=== PATIENT | female | born 1950 | race Asian ===

== ENCOUNTER 2018-10-03 06:55 | Inpatient (IN) | payer OTHER, MEDICAID ==
[2018-10-03] VITALS (9 sets, daily range): BP systolic 88–160
[~2018-10-03] VITALS: Ht 157.5 cm; Wt 59.0 kg
[2018-10-03] MEDS ORDERED: NACL 0.9% 1,000 ML IV ONE (07:21)
[2018-10-03] MEDS ORDERED: DIPHENHYDRAMINE INJ 50 MG/ML VIAL ONE (07:25)
[2018-10-03] MEDS ORDERED: MORPHINE 4 MG/ML INJ. SYRINGE ONE (07:25)
[2018-10-03] MEDS ORDERED: MORPHINE 4 MG/ML INJ. SYRINGE IVP ONE ×3 (07:30→15:15)
[2018-10-03] MEDS ORDERED: DIPHENHYDRAMINE INJ 50 MG/ML VIAL IVP ONE ×2 (07:30→09:30)
[2018-10-03 07:47] LABS: BASOPHILS % (AUTO) 0.3 % (0.0-2.0); EOSINOPHILS # (AUTO) 0.1 K/uL (0.0-0.4); EOSINOPHILS % (AUTO) 0.8 % (0.0-4.0); HEMATOCRIT 46.9 % (36-48); HEMOGLOBIN 15.5 g/dL (12.0-16.0); LYMPHOCYTES # (AUTO) 2.2 K/uL (1.0-5.5); LYMPHOCYTES % (AUTO) 21.8 % (20.5-51.5); MEAN CORPUSCULAR HEMOGLOBIN 31 pg (27-31); MEAN CORPUSCULAR HGB CONC 33 % (32-36); MEAN CORPUSCULAR VOLUME 93 fL (79.0-98.0); MONOCYTES # (AUTO) 0.3 K/uL (0.0-1.0); MONOCYTES % (AUTO) 2.6 % (1.7-9.3); NEUTROPHILS # (AUTO) 7.3 K/uL (1.8-7.7); NEUTROPHILS % (AUTO) 74.5 % (40.0-70.0); PLATELET COUNT (AUTO) 265 K/uL (130-430); RED BLOOD CELL COUNT(AUTO) 5.07 MIL/uL (4.2-6.2); RED CELL DISTRIBUTION WIDTH 12.6 % (9.0-15.0); WHITE BLOOD COUNT (AUTO) 9.9 K/uL (4.8-10.8)
[2018-10-03 08:03] LABS: CALCIUM 9.5 mg/dL (8.4-11.0); CREATININE 0.85 mg/dL (0.55-1.30); POTASSIUM 3.3 mmol/L (3.5-5.1)
[2018-10-03 08:09] LABS: ALBUMIN 3.8 g/dL (3.4-4.8); TOTAL BILIRUBIN 0.5 mg/dL (0.0-1.0)
[2018-10-03 08:58] LABS: BILIRUBIN,URINE NEGATIVE (NEGATIVE); CLARITY/URINE CLEAR (CLEAR); COLOR,URINE YELLOW (YELLOW); GLUCOSE,URINE 2+ (NEGATIVE); KETONES,URINE 1+ (NEGATIVE); LEUKOCYTE ESTERASE ,URINE 1+ (NEGATIVE); NITRITE, URINE NEGATIVE (NEGATIVE); PROTEIN URINE NEGATIVE (NEGATIVE); UROBILINOGEN,URINE 0.2 (0.2-1.0)
[2018-10-03 09:18] LABS: BLOOD, URINE TRACE (NEGATIVE)
[2018-10-03] MEDS ORDERED: PIPERACILLIN/TAZO 3.375 GM in NS 50 ML IV ONE (09:30)
[2018-10-03] MEDS ORDERED: POTASSIUM CHLORIDE 40 MEQ in NS 250 ML IV ONE (09:30)
[2018-10-03 09:34] LABS: BACTERIA,URINE FEW /HPF (None Seen); RBC,URINE 0-3 /HPF (0-3)
[2018-10-03 09:35] LABS: MUCUS,URINE None Seen /LPF (None Seen)
[2018-10-03] MEDS ORDERED: KCL 20 mEq in NS 1000 mL 1,000 ML IV SCH (13:02)
[2018-10-03] MEDS ORDERED: PANTOPRAZOLE SODIUM 40 MG/VIAL (PROTONIX) IVP ONE (13:30)
[2018-10-03] MEDS ORDERED: ACETAMINOPHEN 650 MG SUPP.RECT RC PRN (13:30)
[2018-10-03] MEDS ORDERED: LEVOFLOXACIN 500 MG/D5W 100 ML IV ONE (13:30)
[2018-10-03] MEDS: INSULIN ASPART 100 UNITS/ML, 10 ML VIAL (NovoLOG) SUBCUT PRN ×2 (14:40→18:05)
[2018-10-03] MEDS: LEVOFLOXACIN 500 MG/D5W 100 ML IV SCH (15:02)
[2018-10-03] MEDS ORDERED: ONDANSETRON HCL 4 MG/2 ML VIAL IVP ONE (15:15)
[2018-10-03] MEDS ORDERED: ONDANSETRON HCL 4 MG/2 ML VIAL IVP PRN ×3 (16:15→23:00)
[2018-10-03] MEDS ORDERED: MORPHINE 4 MG/ML INJ. SYRINGE IVP PRN (16:15)
[2018-10-03] MEDS: metroNIDAZOLE 500 mg/NS 100 ML IV SCH (16:16)
[2018-10-03] MEDS ORDERED: LR 1,000 ML IV ONE (19:15)
[2018-10-03] MEDS ORDERED: fentaNYL CITRATE/PF 100 MCG/2 ML AMP IVP ONE (20:20)
[2018-10-03] MEDS ORDERED: PHENYLEPHRINE HCL 10 MG/ML VIAL (NEOSYNEPHRINE) IV ONE (20:20)
[2018-10-03] MEDS ORDERED: BUPIVACAINE LIPOSOME/PF 266 MG/20 ML VIAL INFIL ONE (20:20)
[2018-10-03] MEDS ORDERED: ROCURONIUM BROMIDE 10 MG/ML (ZEMURON) IV ONE (20:20)
[2018-10-03] MEDS ORDERED: PROPOFOL 200MG/ 20ML VIAL (DIPRIVAN) IV ONE (20:20)
[2018-10-03] MEDS ORDERED: NS IRRIG SOLN 1000 ML IR ONE (20:20)
[2018-10-03] MEDS ORDERED: MIDAZOLAM HCL 5 MG/5 ML VIAL IVP ONE (20:20)
[2018-10-03] MEDS ORDERED: SEVOFLURANE 15 MIN GAS INH ONE (20:20)
[2018-10-03] MEDS ORDERED: LR 1,000 ML IV.SOLN IV ONE (20:20)
[2018-10-03] MEDS ORDERED: fentaNYL CITRATE/PF 100 MCG/2 ML AMP IVP PRN ×2 (21:30)
[2018-10-03] MEDS ORDERED: NACL 0.9% 1,000 ML IV SCH (23:00)
[2018-10-03] MEDS ORDERED: ACETAMINOPHEN 325 MG TABLET PO PRN (23:00)
[2018-10-03] MEDS ORDERED: LR 1,000 ML IV SCH (23:21)
[2018-10-04] VITALS (29 sets, daily range): BP systolic 88–166
[2018-10-04 00:07] LABS: CALCIUM 7.2 mg/dL (8.4-11.0); CREATININE 1.24 mg/dL (0.55-1.30)
[2018-10-04 00:10] LABS: POTASSIUM 6.9 mmol/L (3.5-5.1)
[2018-10-04] MEDS ORDERED: CEFAZOLIN 2 GM IVPB PREMIX 100 ML IV ONE (00:31)
[2018-10-04] MEDS: D5/0.45 NS 1,000 ML IV SCH ×3 (00:52→23:17)
[2018-10-04] MEDS: HYDROmorphone 1 MG INJ. 1 MG/ML AMPUL IVP PRN ×2 (00:59→05:38)
[2018-10-04] MEDS ORDERED: SODIUM POLYSTYRENE SULFONATE 15 GM/60 ML UDBTL PO ONE (01:35)
[2018-10-04] MEDS ORDERED: INSULIN REGULAR, HUMAN 100 UNITS/ML, 10 ML VIAL SUBCUT ONE (01:35)
[2018-10-04] MEDS ORDERED: DEXTROSE 50% JECT 50 ML DISP.SYRIN IVP ONE (01:35)
[2018-10-04] MEDS ORDERED: CALCIUM CHLORIDE 1 GM/10 ML DISP.SYRIN (14 mEq Ca++/SYR) IVP ONE (01:45)
[2018-10-04] MEDS: CEFAZOLIN 2 GM IVPB PREMIX 50 ML IV SCH ×2 (01:59→08:43)
[2018-10-04] MEDS ORDERED: INSULIN REGULAR, HUMAN 100 UNITS/ML, 10 ML VIAL IV ONE (02:30)
[2018-10-04] MEDS: metroNIDAZOLE 500 mg/NS 100 ML IV SCH ×4 (03:56→23:14)
[2018-10-04 06:00] LABS: CALCIUM 8.6 mg/dL (8.4-11.0); CREATININE 1.27 mg/dL (0.55-1.30)
[2018-10-04 06:05] LABS: HEMATOCRIT 38.8 % (36-48); HEMOGLOBIN 12.9 g/dL (12.0-16.0); LYMPHOCYTES # (AUTO) 1.6 K/uL (1.0-5.5); LYMPHOCYTES % (AUTO) 9.6 % (20.5-51.5); MEAN CORPUSCULAR HEMOGLOBIN 31 pg (27-31); MEAN CORPUSCULAR HGB CONC 33 % (32-36); MEAN CORPUSCULAR VOLUME 94 fL (79.0-98.0); MONOCYTES % (AUTO) 6.1 % (1.7-9.3); NEUTROPHILS # (AUTO) 13.7 K/uL (1.8-7.7); NEUTROPHILS % (AUTO) 84.3 % (40.0-70.0); PLATELET COUNT (AUTO) 199 K/uL (130-430); RED BLOOD CELL COUNT(AUTO) 4.13 MIL/uL (4.2-6.2); RED CELL DISTRIBUTION WIDTH 13.1 % (9.0-15.0); WHITE BLOOD COUNT (AUTO) 16.3 K/uL (4.8-10.8)
[2018-10-04 06:06] LABS: BILIRUBIN,DIRECT 0.1 mg/dL (0.0-0.3); TOTAL BILIRUBIN 0.4 mg/dL (0.0-1.0)
[2018-10-04] MEDS: INSULIN ASPART 100 UNITS/ML, 10 ML VIAL (NovoLOG) SUBCUT PRN (06:49)
[2018-10-04] MEDS: PANTOPRAZOLE SODIUM 40 MG/VIAL (PROTONIX) IVP SCH (08:43)
[2018-10-04] MEDS ORDERED: NS 150 ML IV ONE (10:00)
[2018-10-04] MEDS: LEVOFLOXACIN 500 MG/D5W 100 ML IV SCH (10:29)
[2018-10-04] MEDS ORDERED: NACL 0.9% 1,000 ML IV ONE (11:00)
[2018-10-04] MEDS: HYDROmorphone 2 MG/ML VIAL IVP PRN ×2 (13:57→22:09)
[2018-10-04] MEDS: FLUCONAZOLE 200 mg/ NS 100 ML IV SCH (15:11)
[2018-10-04] MEDS: PIPERACILLIN/TAZO 4.5GM/DEX-IS 100 ML IV SCH ×2 (15:52→21:51)
[2018-10-05] MEDS: D5/0.45 NS 1,000 ML IV SCH ×2 (01:47→16:59)
[2018-10-05] MEDS: metroNIDAZOLE 500 mg/NS 100 ML IV SCH ×2 (05:00→13:24)
[2018-10-05] MEDS: PIPERACILLIN/TAZO 4.5GM/DEX-IS 100 ML IV SCH ×3 (06:00→21:27)
[2018-10-05 06:35] LABS: ALBUMIN 1.8 g/dL (3.4-4.8); CALCIUM 7.5 mg/dL (8.4-11.0); CREATININE 1.41 mg/dL (0.55-1.30); POTASSIUM 4.2 mmol/L (3.5-5.1); TOTAL BILIRUBIN 0.5 mg/dL (0.0-1.0)
[2018-10-05 06:41] LABS: BASOPHILS # (AUTO) 0.2 K/uL (0.0-0.2); BASOPHILS % (AUTO) 1.1 % (0.0-2.0); EOSINOPHILS % (AUTO) 0.1 % (0.0-4.0); HEMATOCRIT 29.5 % (36-48); HEMOGLOBIN 9.7 g/dL (12.0-16.0); LYMPHOCYTES # (AUTO) 1.3 K/uL (1.0-5.5); LYMPHOCYTES % (AUTO) 9.5 % (20.5-51.5); MEAN CORPUSCULAR HEMOGLOBIN 31 pg (27-31); MEAN CORPUSCULAR HGB CONC 33 % (32-36); MEAN CORPUSCULAR VOLUME 94 fL (79.0-98.0); MONOCYTES # (AUTO) 0.6 K/uL (0.0-1.0); MONOCYTES % (AUTO) 4.6 % (1.7-9.3); NEUTROPHILS # (AUTO) 11.9 K/uL (1.8-7.7); NEUTROPHILS % (AUTO) 84.7 % (40.0-70.0); PLATELET COUNT (AUTO) 164 K/uL (130-430); RED BLOOD CELL COUNT(AUTO) 3.14 MIL/uL (4.2-6.2); RED CELL DISTRIBUTION WIDTH 13.3 % (9.0-15.0)
[2018-10-05 08:03] VITALS: BP_SYST 124
[2018-10-05] MEDS: PANTOPRAZOLE SODIUM 40 MG/VIAL (PROTONIX) IVP SCH (08:09)
[2018-10-05] MEDS: FLUCONAZOLE 200 mg/ NS 100 ML IV SCH (08:10)
[2018-10-05] MEDS: HYDROmorphone 2 MG/ML VIAL IVP PRN ×2 (08:11→17:07)
[2018-10-05 11:29] VITALS: BP_SYST 117
[2018-10-05 15:32] VITALS: BP_SYST 123
[2018-10-05 19:08] VITALS: BP_SYST 120
[2018-10-06 03:50] VITALS: BP_SYST 159
[2018-10-06] MEDS: PIPERACILLIN/TAZO 4.5GM/DEX-IS 100 ML IV SCH ×3 (05:10→21:30)
[2018-10-06] MEDS: D5/0.45 NS 1,000 ML IV SCH ×4 (05:11→16:52)
[2018-10-06] MEDS: HYDROmorphone 2 MG/ML VIAL IVP PRN ×3 (05:37→17:19)
[2018-10-06 07:29] LABS: BASOPHILS % (AUTO) 0.2 % (0.0-2.0); EOSINOPHILS # (AUTO) 0.1 K/uL (0.0-0.4); EOSINOPHILS % (AUTO) 0.8 % (0.0-4.0); HEMOGLOBIN 8.7 g/dL (12.0-16.0); LYMPHOCYTES # (AUTO) 1.1 K/uL (1.0-5.5); LYMPHOCYTES % (AUTO) 7.3 % (20.5-51.5); MEAN CORPUSCULAR HEMOGLOBIN 32 pg (27-31); MEAN CORPUSCULAR HGB CONC 34 % (32-36); MEAN CORPUSCULAR VOLUME 94 fL (79.0-98.0); MONOCYTES # (AUTO) 0.5 K/uL (0.0-1.0); MONOCYTES % (AUTO) 3.5 % (1.7-9.3); NEUTROPHILS # (AUTO) 13.4 K/uL (1.8-7.7); NEUTROPHILS % (AUTO) 88.2 % (40.0-70.0); PLATELET COUNT (AUTO) 159 K/uL (130-430); RED BLOOD CELL COUNT(AUTO) 2.76 MIL/uL (4.2-6.2); RED CELL DISTRIBUTION WIDTH 13.1 % (9.0-15.0); WHITE BLOOD COUNT (AUTO) 15.1 K/uL (4.8-10.8)
[2018-10-06 07:30] VITALS: BP_SYST 120
[2018-10-06] MEDS: PANTOPRAZOLE SODIUM 40 MG/VIAL (PROTONIX) IVP SCH (08:29)
[2018-10-06] MEDS: FLUCONAZOLE 200 mg/ NS 100 ML IV SCH (08:31)
[2018-10-06 10:05] LABS: CALCIUM 7.4 mg/dL (8.4-11.0); CREATININE 1.3 mg/dL (0.55-1.30); POTASSIUM 3.4 mmol/L (3.5-5.1)
[2018-10-06] MEDS ORDERED: *PPN PER PHARMACY XX PRN (10:45)
[2018-10-06 11:36] VITALS: BP_SYST 131
[2018-10-06] MEDS ORDERED: KCL 20 mEq in 100 mL (PREMIX) 100 ML IV ONE (12:15)
[2018-10-06 16:32] VITALS: BP_SYST 146
[2018-10-06 20:00] VITALS: BP_SYST 148
[2018-10-07 00:06] VITALS: BP_SYST 150
[2018-10-07] MEDS: D5/0.45 NS 1,000 ML IV SCH ×5 (00:18→16:10)
[2018-10-07] MEDS: HYDROmorphone 2 MG/ML VIAL IVP PRN (03:26)
[2018-10-07] MEDS: PIPERACILLIN/TAZO 4.5GM/DEX-IS 100 ML IV SCH (05:22)
[2018-10-07 07:43] LABS: BASOPHILS % (AUTO) 0.2 % (0.0-2.0); EOSINOPHILS # (AUTO) 0.3 K/uL (0.0-0.4); EOSINOPHILS % (AUTO) 2.5 % (0.0-4.0); HEMATOCRIT 27.8 % (36-48); HEMOGLOBIN 9.1 g/dL (12.0-16.0); LYMPHOCYTES # (AUTO) 1.4 K/uL (1.0-5.5); LYMPHOCYTES % (AUTO) 11.6 % (20.5-51.5); MEAN CORPUSCULAR HEMOGLOBIN 31 pg (27-31); MEAN CORPUSCULAR HGB CONC 33 % (32-36); MEAN CORPUSCULAR VOLUME 94 fL (79.0-98.0); MONOCYTES # (AUTO) 0.6 K/uL (0.0-1.0); MONOCYTES % (AUTO) 5.3 % (1.7-9.3); NEUTROPHILS # (AUTO) 9.6 K/uL (1.8-7.7); NEUTROPHILS % (AUTO) 80.4 % (40.0-70.0); PLATELET COUNT (AUTO) 198 K/uL (130-430); RED BLOOD CELL COUNT(AUTO) 2.97 MIL/uL (4.2-6.2); RED CELL DISTRIBUTION WIDTH 12.9 % (9.0-15.0); WHITE BLOOD COUNT (AUTO) 11.9 K/uL (4.8-10.8)
[2018-10-07 08:05] LABS: ALBUMIN 1.7 g/dL (3.4-4.8); CALCIUM 7.6 mg/dL (8.4-11.0); CREATININE 1.25 mg/dL (0.55-1.30); PHOSPHORUS 1.8 mg/dL (2.7-4.5); TOTAL BILIRUBIN 0.5 mg/dL (0.0-1.0)
[2018-10-07 08:18] LABS: POTASSIUM 2.8 mmol/L (3.5-5.1)
[2018-10-07] MEDS ORDERED: POTASSIUM CHLORIDE 20 MEQ TAB.PRT.SR PO ONE (08:30)
[2018-10-07] MEDS ORDERED: KCL 40mEq in D5/0.45NS 1000 mL 1,000 ML IV SCH (08:45)
[2018-10-07] MEDS: PANTOPRAZOLE SODIUM 40 MG/VIAL (PROTONIX) IVP SCH (09:15)
[2018-10-07] MEDS: POTASSIUM CHLORIDE 40 MEQ in NS 250 ML IV ONE ×2 (10:15→11:47)
[2018-10-07] MEDS: FLUCONAZOLE 200 mg/ NS 100 ML IV SCH (10:16)
[2018-10-07] MEDS ORDERED: POTASSIUM CHLORIDE 20 MEQ/PKT PACKET PO ONE (12:15)
[2018-10-07 12:17] VITALS: BP_SYST 142
[2018-10-07] MEDS: cefTRIAXone 1 GM in D5W 50 ML IV SCH (13:19)
[2018-10-07 14:45] LABS: INR 0.9 (0.8-1.2); PROTHROMBIN TIME 9.6 SECS (9.5-12.5)
[2018-10-07] MEDS: metroNIDAZOLE 500 mg/NS 100 ML IV SCH ×2 (15:34→22:15)
[2018-10-07 16:35] VITALS: BP_SYST 138
[2018-10-07] MEDS: FAT EMULSIONS 250 ML IV SCH (18:37)
[2018-10-07] MEDS: TPN PERIPHERAL IV SCH ×8 (18:38)
[2018-10-07] MEDS: SODIUM ACETATE IV SCH ×8 (18:38)
[2018-10-07] MEDS: [UNRECOGNIZED DRUG - OTHER] IV SCH ×8 (18:38)
[2018-10-07] MEDS: K PHOS IV SCH ×8 (18:38)
[2018-10-07 22:10] VITALS: BP_SYST 151
[2018-10-07] MEDS: INSULIN ASPART 100 UNITS/ML, 10 ML VIAL (NovoLOG) SUBCUT PRN (23:16)
[2018-10-08] VITALS (7 sets, daily range): BP systolic 142–176
[2018-10-08] MEDS: HYDROmorphone 2 MG/ML VIAL IVP PRN ×2 (02:16→09:14)
[2018-10-08] MEDS: metroNIDAZOLE 500 mg/NS 100 ML IV SCH ×3 (05:10→21:03)
[2018-10-08] MEDS: INSULIN ASPART 100 UNITS/ML, 10 ML VIAL (NovoLOG) SUBCUT PRN ×2 (05:13→23:07)
[2018-10-08 07:34] LABS: CALCIUM 7.7 mg/dL (8.4-11.0); CREATININE 1.06 mg/dL (0.55-1.30); POTASSIUM 3.6 mmol/L (3.5-5.1)
[2018-10-08 08:14] LABS: PHOSPHORUS 2.4 mg/dL (2.7-4.5)
[2018-10-08] MEDS: PANTOPRAZOLE SODIUM 40 MG/VIAL (PROTONIX) IVP SCH (09:13)
[2018-10-08] MEDS: FLUCONAZOLE 200 mg/ NS 100 ML IV SCH (09:13)
[2018-10-08] MEDS: cefTRIAXone 1 GM in D5W 50 ML IV SCH (12:10)
[2018-10-08] MEDS: D5/0.45 NS 1,000 ML IV SCH (15:18)
[2018-10-08] MEDS: FAT EMULSIONS 250 ML IV SCH (17:52)
[2018-10-08] MEDS: SODIUM ACETATE IV SCH ×8 (17:53)
[2018-10-08] MEDS: TPN PERIPHERAL IV SCH ×8 (17:53)
[2018-10-08] MEDS: [UNRECOGNIZED DRUG - OTHER] IV SCH ×8 (17:53)
[2018-10-08] MEDS: K PHOS IV SCH ×8 (17:53)
[2018-10-09] VITALS (7 sets, daily range): BP systolic 148–165
[2018-10-09] MEDS: D5/0.45 NS 1,000 ML IV SCH (03:33)
[2018-10-09] MEDS: metroNIDAZOLE 500 mg/NS 100 ML IV SCH ×3 (05:04→21:07)
[2018-10-09] MEDS: INSULIN ASPART 100 UNITS/ML, 10 ML VIAL (NovoLOG) SUBCUT PRN (05:06)
[2018-10-09 07:18] LABS: CALCIUM 7.9 mg/dL (8.4-11.0); CREATININE 0.99 mg/dL (0.55-1.30); PHOSPHORUS 2.9 mg/dL (2.7-4.5)
[2018-10-09 07:21] LABS: POTASSIUM 2.8 mmol/L (3.5-5.1)
[2018-10-09] MEDS: PANTOPRAZOLE SODIUM 40 MG/VIAL (PROTONIX) IVP SCH (08:49)
[2018-10-09] MEDS: FLUCONAZOLE 200 mg/ NS 100 ML IV SCH (08:49)
[2018-10-09] MEDS ORDERED: POTASSIUM CHLORIDE 40 MEQ, LIDOCAINE JECT 2% PF 100 MG 50 MG in NS 250 ML IV ONE (09:45)
[2018-10-09] MEDS ORDERED: cloNIDine HCL 0.1 MG TABLET PO PRN (10:15)
[2018-10-09] MEDS: cefTRIAXone 1 GM in D5W 50 ML IV SCH (11:49)
[2018-10-09] MEDS ORDERED: SODIUM CHLORIDE IV SCH ×9 (18:00)
[2018-10-09] MEDS ORDERED: TPN PERIPHERAL IV SCH ×9 (18:00)
[2018-10-09] MEDS ORDERED: K PHOS IV SCH ×9 (18:00)
[2018-10-09] MEDS: FAT EMULSIONS 250 ML IV SCH (18:00)
[2018-10-09] MEDS ORDERED: [UNRECOGNIZED DRUG - OTHER] IV SCH ×9 (18:00)
[2018-10-10] MEDS: D5/0.45 NS 1,000 ML IV SCH (02:34)
[2018-10-10] MEDS: metroNIDAZOLE 500 mg/NS 100 ML IV SCH ×3 (05:40→21:57)
[2018-10-10 07:43] LABS: CALCIUM 7.4 mg/dL (8.4-11.0); CREATININE 0.93 mg/dL (0.55-1.30)
[2018-10-10 07:58] LABS: POTASSIUM 2.7 mmol/L (3.5-5.1)
[2018-10-10 08:04] LABS: PHOSPHORUS 2.9 mg/dL (2.7-4.5)
[2018-10-10 08:16] VITALS: BP_SYST 146
[2018-10-10] MEDS: FLUCONAZOLE 200 mg/ NS 100 ML IV SCH (09:01)
[2018-10-10] MEDS: PANTOPRAZOLE SODIUM 40 MG/VIAL (PROTONIX) IVP SCH (09:01)
[2018-10-10] MEDS ORDERED: POTASSIUM CHLORIDE 40 MEQ, LIDOCAINE JECT 2% PF 100 MG 50 MG in NS 250 ML IV ONE (09:15)
[2018-10-10] MEDS: cefTRIAXone 1 GM in D5W 50 ML IV SCH (11:12)
[2018-10-10 13:50] VITALS: BP_SYST 159
[2018-10-10] MEDS ORDERED: DIATR MEGLU/DIATRIZ SOD 30 ML SOLUTION PO ONE (15:53)
[2018-10-10 16:40] VITALS: BP_SYST 146
[2018-10-10 16:46] VITALS: BP_SYST 146
[2018-10-10] MEDS: FAT EMULSIONS 250 ML IV SCH (16:57)
[2018-10-10] MEDS ORDERED: SODIUM CHLORIDE IV SCH ×11 (18:00)
[2018-10-10] MEDS ORDERED: [UNRECOGNIZED DRUG - OTHER] IV SCH ×11 (18:00)
[2018-10-10] MEDS ORDERED: TPN PERIPHERAL IV SCH ×11 (18:00)
[2018-10-10] MEDS ORDERED: K PHOS IV SCH ×11 (18:00)
[2018-10-10 18:12] LABS: CALCIUM 7.3 mg/dL (8.4-11.0); CREATININE 1.11 mg/dL (0.55-1.30); POTASSIUM 3.3 mmol/L (3.5-5.1)
[2018-10-10] MEDS ORDERED: POTASSIUM CHLORIDE 30 MEQ in NS 250 ML IV ONE (21:30)
[2018-10-10 21:35] VITALS: BP_SYST 154
[2018-10-10] MEDS ORDERED: KCL 40 mEq in 100 mL (PREMIX) 100 ML IV ONE (21:57)
[2018-10-11] VITALS: BP_SYST 160
[2018-10-11] MEDS: metroNIDAZOLE 500 mg/NS 100 ML IV SCH ×2 (05:41→16:59)
[2018-10-11] MEDS: D5/0.45 NS 1,000 ML IV SCH (05:42)
[2018-10-11 07:31] LABS: ALBUMIN 1.7 g/dL (3.4-4.8); CALCIUM 7.8 mg/dL (8.4-11.0); CREATININE 0.91 mg/dL (0.55-1.30); POTASSIUM 3.9 mmol/L (3.5-5.1)
[2018-10-11 08:41] VITALS: BP_SYST 172
[2018-10-11] MEDS: PANTOPRAZOLE SODIUM 40 MG/VIAL (PROTONIX) IVP SCH (08:43)
[2018-10-11] MEDS: FLUCONAZOLE 200 mg/ NS 100 ML IV SCH (08:43)
[2018-10-11] MEDS: cefTRIAXone 1 GM in D5W 50 ML IV SCH (11:35)
[2018-10-11 12:09] VITALS: BP_SYST 158
[2018-10-11] MEDS ORDERED: ACETAMINOPHEN 325 MG TABLET PO PRN (12:30)
[2018-10-11] MEDS ORDERED: HYDROcodone/ACETAMIN 5-325 MG TAB (NORCO/ VICODIN) PO PRN (12:30)
[2018-10-11 12:54] VITALS: BP_SYST 158
[2018-10-11 16:53] VITALS: BP_SYST 162
[2018-10-11] MEDS: FAT EMULSIONS 250 ML IV SCH (17:09)
[2018-10-11] MEDS ORDERED: TPN PERIPHERAL IV SCH ×10 (18:00)
[2018-10-11] MEDS ORDERED: POTASSIUM CHLORIDE IV SCH ×10 (18:00)
[2018-10-11] MEDS ORDERED: [UNRECOGNIZED DRUG - OTHER] IV SCH ×10 (18:00)
[2018-10-11] MEDS ORDERED: SODIUM ACETATE IV SCH ×10 (18:00)
[2018-10-12] MEDS ORDERED: PANTOPRAZOLE SODIUM 40 MG TAB PO SCH (09:00)
== END 2018-10-11 18:25 | DRG 329 ==
LOC: SED 06:55 → STU 11:17 → SIC 22:02 → STU 10-04 22:40 → SMU 10-05 16:57
PROVIDERS: ADMIT Internal Medicine; ATTEND Internal Medicine
PROC: 0DB80ZZ Excision of Small Intestine, Open Approach (ICD-10-PCS; 2018-10-03)
PROC: 0WUF0JZ Supplement Abdominal Wall with Synthetic Substitute, Open Approach (ICD-10-PCS; principal; 2018-10-03 18:00)
PROC: 02HV33Z Insertion of Infusion Device into Superior Vena Cava, Percutaneous Approach (ICD-10-PCS; 2018-10-07)
PROC: B548ZZA Ultrasonography of Superior Vena Cava, Guidance (ICD-10-PCS; 2018-10-07)
DX: K43.7 Other and unspecified ventral hernia with gangrene (principal); K65.9 Peritonitis, unspecified; J96.00 Acute respiratory failure, unspecified whether with hypoxia or hypercapnia; N17.0 Acute kidney failure with tubular necrosis; E43 Unspecified severe protein-calorie malnutrition; N39.0 Urinary tract infection, site not specified; J98.11 Atelectasis; K55.9 Vascular disorder of intestine, unspecified; D72.829 Elevated white blood cell count, unspecified; D64.9 Anemia, unspecified; E87.6 Hypokalemia; E87.5 Hyperkalemia; M19.90 Unspecified osteoarthritis, unspecified site; R73.9 Hyperglycemia, unspecified; Z90.3 Acquired absence of stomach [part of]; Z85.028 Personal history of other malignant neoplasm of stomach; Z92.21 Personal history of antineoplastic chemotherapy; Z92.3 Personal history of irradiation; Z68.23 Body mass index [BMI] 23.0-23.9, adult
CPT/HCPCS: 36415; 36600; 71045; 76770; 80048; 80053; 80076; 81000-TC; 82040-TC; 82150-TC; 82803-TC; 82962; 83605; 83690-TC; 83735-TC; 84100-TC; 84132-TC; 84478-TC; 85025; 85610-TC; 85730-TC; 87040-TC; 87081; 87086; 88302; 88305; 88307; 93005; 94002; 94003; 94010; 94760; 97110-GP; 97116-GP; 97530-GP; 99285; C1751; C1769; C9113; C9290; G0378; J0610; J0690; J0696; J1170; J1200; J1450; J1815; J1956; J2250; J2270; J2370; J2543; J2704; J3010; J3475; J3480; J3490; J7030; J7050; J7060; J7120; J7131; Q9964